=== PATIENT | female | born 1995 | race Caucasian/White ===

== ENCOUNTER 2017-04-17 22:31 | Emergency (ER) | payer OTHER ==
[~2017-04-17] VITALS: Ht 149.9 cm; Wt 48.5 kg
--- NOTE | 2017-04-17 23:29 | ED GI/GU/ABDOMINAL COMPLAINT ---
History of Present Illness General Chief Complaint: General Adult Stated Complaint: ABD PAIN, NOT FEELING WELL, ?TAMPON STUCK Source: patient Exam Limitations: no limitations Vital Signs & Intake/Output Vital Signs & Intake/Output Vital Signs Date Time Temp Pulse Resp B/P B/P Pulse O2 O2 Flow FiO2 Mean Ox Delivery Rate 04/17 2237 97.1 76 16 99/68 98 Room Air ED Intake and Output 04/18 0000 04/17 1200 Intake Total 0 Output Total Balance 0 Intake, Oral 0 Patient 107 lb Weight Triage Note: PT STATES THAT SHE HAS HER PERIOD AND THAT BEFORE SHE WENT TO AN EVENT TONIGHT SHE REMEMBERS PUTTING A TAMPON IN AND WHEN SHE WENT TO REMOVE IT , IT WAS NOT THERE. PT STATES THAT NOW SHE IS HAVING SOME ABD CRAMPING AND NOT FEELING WELL. COMPLAINS OF SLIGHT NAUSEA Triage Nurses Notes Reviewed? yes ? n Is pt currently ? No Onset: Abrupt Duration: day(s): (1), constant, continues in ED Timing: recent history Radiation: no radiation No Modifying Factors: none HPI: 21-year-old female comes into emergency room for further evaluation of lower abdominal cramping and possible tampon that is stuck in her vagina. Patient reports that she started with her menstrual cycle 2 days ago. She started with some lower abdominal cramping today. She thought she had put a tampon in prior to the event that she attended today. When she went to take it out later she cannot find it. Patient was not 100% sure whether or not she actually put a tampon in earlier. She's been experiencing some lower cramping abdominal pain. Normal appetite. No complaints of fever. No vomiting. Some nausea. Denies any changes in bowel movement. Denies any other associated symptoms. (JOHN LOPEZ) Past History Travel History Traveled to [place] past 21 day No Medical History Any Pertinent Medical History? none Neurological: NONE EENT: NONE Cardiovascular: NONE Respiratory: NONE Gastrointestinal: NONE Hepatic: NONE Renal: NONE Musculoskeletal: NONE Psychiatric: NONE Endocrine: NONE Blood Disorders: NONE Cancer(s): NONE CONCRETE SC[employer]PTOR/Reproductive: NONE Surgical History Surgical History: non-contributory Psychosocial History What is your primary language Kiswahili Tobacco Use: Never used ETOH Use: denies use Illicit Drug Use: denies illicit drug use Family History Hx Contributory? No (JOHN LOPEZ) Review of Systems Review of Systems Constitutional: Reports: no symptoms. EENTM: Reports: no symptoms. Respiratory: Reports: no symptoms. Cardiovascular: Reports: no symptoms. GI: Reports: see HPI. Genitourinary: Reports: see HPI. Musculoskeletal: Reports: no symptoms. Skin: Reports: no symptoms. Neurological/Psychological: Reports: no symptoms. Hematologic/Endocrine: Reports: no symptoms. Immunologic/Allergic: Reports: no symptoms. All Other Systems: Reviewed and Negative (JOHN LOPEZ) Physical Exam Physical Exam General Appearance: well developed/nourished, no apparent distress, alert Head: atraumatic, normal appearance Eyes: Bilateral: normal appearance. Ears, Nose, Throat, Mouth: hearing grossly normal, moist mucous membrane Neck: normal inspection Respiratory: no respiratory distress Cardiovascular: regular rate/rhythm Gastrointestinal: soft, tenderness (mildsuprapubic/ mid abd), negative mcburneys point Pelvic: normal external exam, normal speculum exam, normal bimanual exam, no foreign body seen Back: normal range of motion Extremities: normal range of motion Neurologic/Psych: awake, alert, oriented x 3 Skin: intact, normal color Core Measures ACS in differential dx? No Severe Sepsis Present: No Septic Shock Present: No (JOHN LOPEZ) Progress Differential Diagnosis: appendicitis, biliary colic, diverticulitis, ectopic , hernia, intrauterine , kidney stone, ovarian cyst, ovarian torsion, PID/cervicitis, peptic ulcer, UTI/pyelo Plan of Care: see belowInitial ED EKG: none (JOHN LOPEZ) Plan of Care: see below (BETH GEORGE,CAMILLE Majano) Departure Departure Disposition: HOME OR SELF CARE Condition: Stable Clinical Impression Primary Impression: Abdominal pain Referrals: KAVON SMITH (PCP/Family) Additional Instructions: Return if any concerns worsening symptoms. Return if any localized right lower abdominal pain, fever, vomiting, decreased appetite or any other concerns worsening symptoms. Please go over all results of today's visit with your primary care doctor. Contact your primary care doctor to let them know you were here in the emergency room. There may be nonspecific findings which may not be related to your visit today here in the emergency room but may require further evaluation and chronic monitoring by your primary care doctor. If you had a laceration today the chance of foreign body always remains. You should follow-up with your primary care doctor for recheck in 3-5 days for a wound check. If you had an x-ray done there is a chance that a fracture could have been missed on initial read and you should follow-up with your primary care doctor for repeat x-rays if symptoms persist. If your blood pressure was elevated here in the emergency room please have rechecked by her primary care doctor within the next 48 hours by your primary care doctor. If you were prescribed a narcotic here in the emergency room or any type of controlled substances you're not allowed to drive while taking this medication or operate any type of heavy machinery. Narcotics can make you feel lightheaded dizziness nausea and can cause constipation. You may need to coal picker a stool softener. Thank you for choosing [facility] emergency room. Please return to the emergency room immediately if you have any other concerns worsening of symptoms. Departure Forms: Customer Survey D/C INS-APPENDICITIS EXCLUSION General Discharge Information Comments Patient clinically looks well. Patient is nontoxic appearing. Patient is in no apparent distress. Low suspicion for appendicitis. Discussed the possibility of early appendicitis. No signs of PID. Afebrile. No white count. No guarding on exam. At this time patient can follow-up as outpatient. Diagnostic imaging not indicated at this time. NO SUSPCICION FOR OVARIAN TORSION. (JOHN LOPEZ) PA/ACCOUNTANT TAX Co-Sign Statement Statement: ED Attending supervision documentation- [] I saw and evaluated the patient. I have also reviewed all the pertinent lab results and diagnostic results. I agree with the findings and the plan of care as documented in the PA's/ACCOUNTANT TAX's documentation. [x] I have reviewed the ED Record and agree with the PA's/ACCOUNTANT TAX's documentation. [] Additions or exceptions (if any) to the PAs/ACCOUNTANT TAX's note and plan are summarized below: [] (BETH GEORGE,CAMILLE Mjaano) persist. If your blood pressure was elevated here in the emergency room please have rechecked by her primary care doctor within the next 48 hours by your primary care doctor. If you were prescribed a narcotic here in the emergency room or any type of controlled substances you're not allowed to drive while taking this medication or operate any type of heavy machinery. Narcotics can make you feel lightheaded dizziness nausea and can cause constipation. You may need to coal picker a stool softener. Thank you for choosing [facility] emergency room. Please return to the emergency room immediately if you have any other concerns worsening of symptoms. Departure Forms: Customer Survey D/C INS-APPENDICITIS EXCLUSION General Discharge Information Comments Patient clinically looks well. Patient is nontoxic appearing. Patient is in no apparent distress. Low suspicion for appendicitis. Discussed the possibility of early appendicitis. No signs of PID. Afebrile. No white count. No guarding on exam. At this time patient can follow-up as outpatient. Diagnostic imaging not indicated at this time. NO SUSPCICION FOR OVARIAN TORSION.
[2017-04-18 00:05] LABS: ABSOLUTE BASOPHIL COUNT 0 /CUMM (0.0-0.2); ABSOLUTE EOSINOPHIL COUNT 0 /CUMM (0.0-0.7); ABSOLUTE GRANULOCYTE CT 4.2 /CUMM (1.4-6.5); ABSOLUTE LYMPH COUNT 0.7 /CUMM (1.2-3.4); ABSOLUTE MONOCYTE COUNT 0.3 /CUMM (0.10-0.60); BASOPHIL % 0.4 % (0.0-2.0); EOSINOPHIL % 0 % (0-5); GRANULOCYTE % 80.9 % (42.2-75.2); HEMATOCRIT 37.3 % (37-47); MEAN CORPUSCULAR HGB 26.3 PG (27.0-31.0); MEAN CORPUSCULAR VOLUME 79.6 FL (81.0-99.0); MEAN PLATELET VOLUME 7.3 FL (7.4-10.4); PLATELET COUNT 241 /CUMM (130-400); RBC DISTRIBUTION WIDTH 12.9 % (11.5-14.5); RED BLOOD CELL CT 4.69 /CUMM (4.20-5.40); WHITE BLOOD CELL COUNT 5.3 /CUMM (4.8-10.8)
[2017-04-18 00:29] VITALS: BP 106/70
== END 2017-04-18 00:42 ==
LOC: ERH 22:31
PROVIDERS: Physician Assistant Medical
DX: R10.9 Unspecified abdominal pain (principal)
CPT/HCPCS: 87070; 81001; 81025; 87491; 87591